=== PATIENT | female | born 1985 | race Caucasian/White ===

== ENCOUNTER 2021-03-20 20:02 | Inpatient (IN) | payer OTHER ==
[~2021-03-20] VITALS: Ht 172.7 cm; Wt 113.4 kg
== END 2021-03-21 09:39 | disposition home or self-care (01) | DRG 779 ==
LOC: ER 20:02 → SEC-K 23:28 → LDR 03-21 04:22
PROVIDERS: ADMIT Obstetrics & Gynecology; ATTEND Obstetrics & Gynecology
PROC: BY4CZZZ Ultrasonography of Second Trimester, Single Fetus (ICD-10-PCS; principal; 2021-03-20)
DX: O03.4 Incomplete spontaneous abortion without complication (principal); Z20.822 Contact with and (suspected) exposure to COVID-19